=== PATIENT | male | born 1955 | race Caucasian/White ===

== ENCOUNTER 2019-12-27 09:41 | Outpatient (CLI) | payer OTHER, SELFPAY ==
--- NOTE | 2019-12-27 09:56 | CT_ITS ---
WS: [id number] LDCT LUNG CANCER SCREENING HISTORY: HX OF TOBACCO USE TECHNIQUE: Axial imaging performed from the apices to 1 cm below the costophrenic angles. Coronal and sagittal reformats are submitted with axial MIP series. All CT scans at [facility] use at least one of these dose optimization techniques: automated exposure control; mA and/or kV adjustment per patient size (includes targeted exams where dose is matched to clinical indication); or iterativ e reconstruction. DLP: 60.0 mGy.cm DIvol: 1.52 mGy COMPARISON: None available. Diagnostic quality: Satisfactory Lung Nodules: None. No endobronchial lesions. Lungs: Hyperexpanded lungs with emphysema. No pneumonia. Heart: Normal size heart. Moderate coronary artery atherosclerosis. Most significant burden in the LE FT anterior descending coronary artery. Other findings: Mild atherosclerosis aorta. Mild gynecomastia. Small hiatal hernia. CT/CT lung screening [id number] IMPRESSION: LUNG-RADS: 1-Negative FOLLOW UP: 12 Month: Continue annual screening with LDCT OTHER FINDINGS (S MODIFIER): None.
== END 2019-12-27 09:42 | disposition home or self-care (01) ==
LOC: CT 09:47
PROVIDERS: Visit Provider Nurse Practitioner Family
DX: Z12.2 Encounter for screening for malignant neoplasm of respiratory organs (principal); Z87.891 Personal history of nicotine dependence; I70.0 Atherosclerosis of aorta; N62 Hypertrophy of breast; K44.9 Diaphragmatic hernia without obstruction or gangrene
CPT/HCPCS: G0297

== ENCOUNTER 2020-07-13 09:10 | Emergency (ER) | payer OTHER, SELFPAY ==
[2020-07-13 09:13] VITALS: BP 160/89; PULSE 81; RESP 20; TEMP 37; O2SAT 95; BMI 40.2
[2020-07-13 09:24] VITALS: BP 160/89; PULSE 77; RESP 18; O2SAT 95
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
[2020-07-13 09:25] VITALS: BP 142/80; PULSE 81; RESP 18; O2SAT 96
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
[2020-07-13 10:54] VITALS: BP 141/71; PULSE 85; RESP 14; O2SAT 98
== END 2020-07-13 11:04 | disposition home or self-care (01) ==
PROVIDERS: Emergency Provider Emergency Medicine
DX: Z04.1 Encounter for examination and observation following transport accident (principal); Z79.82 Long term (current) use of aspirin; Z79.84 Long term (current) use of oral hypoglycemic drugs; I10 Essential (primary) hypertension; E78.5 Hyperlipidemia, unspecified; Z87.891 Personal history of nicotine dependence; V57.5XXA Driver of pick-up truck or van injured in collision with fixed or stationary object in traffic accident, initial encounter
CPT/HCPCS: 70450; 99283

== ENCOUNTER 2020-10-30 14:44 | Emergency (ER) | payer OTHER, SELFPAY ==
[2020-10-30 14:50] VITALS: BMI 40.6
--- NOTE | 2020-10-30 15:26 | ED_ITS ---
HPI - Arrhythmia/Palpitations General: Chief Complaint: Arrhythmia/Palpitations Stated Complaint: Abnormal EKG Time Seen by Provider: 10/30/20 15:26 History of Present Illness: HPI narrative: Mr. Tabares is a 65-year-old gentleman with significant past medical history of IA, hypertension, hyperlipidemia, diabetes, and history of tobaccoism who presents emergency department due to chest pain. He endorses being at his baseline health, and was at work this morning. He was walking when he had sudden onset of squeezing chest pain in the middle of his chest. There is no radiation, there was mild associated shortness of breath, no dizziness or lightheadedness. This self resolved but he does describe having to clench his chest. This occurred a few more times and subsequently has not recurred. He describes this as not similar to prior heart attack. There are no other specific exacerbating relieving factors. He does not frequently have chest discomfort. Review of Systems General: Reports: 10 or more systems reviewed and unremarkable except in HPI and below Narrative: CONSTITUTIONAL: denies fever, fatigue, weakness EYES - denies pain, denies loss of vision EARS - denies ear issues. NOSE - denies congestion or rhinorrhea. THROAT - denies sore throat or difficulty swallowing. CARDIOVASCULAR -see HPI. RESPIRATORY -see HPI. GASTROINTESTINAL - denies abdominal pain, no nausea vomiting, no changes in bowel habits GENITOURINARY - denies dysuria or urinary frequency MUSCULOSKELETAL- denies deformity or pain SKIN - denies rashes or new changed skin lesions NEUROLOGIC - denies focal weakness or sensory changes HEMATOLOGIC/LYMPHATIC - denies easy bruising or lymphadenopathy. PFS ED PFSH: Medical History Depression Diabetic acidosis HTN (hypertension) Hyperlipidemia Surgical History H/O shoulder surgery History of heart artery stent Family History Other Cancer Social History Smoking and tobacco status: former smoker Alcohol intake: current Alcohol intake frequency: few times a month Physical Exam Narrative: EXAM NARRATIVE: GENERAL/CONSTITUTIONAL - well-appearing. No acute distress. Eyes - PERRL, no conjunctival injection ENMT - Atraumatic external nose and ears. Moist mucous membranes NECK - supple. trachea midline CARDIOVASCULAR - regular rate and rhythm. Peripheral pulses 2+ and equal RESPIRATORY -clear to auscultation bilaterally. No retractions or accessory muscle use. ABDOMEN/GI - Nontender/Nondistended. No tenderness to percussion or evidence of peritonitis MSK - Extremities without obvious deformity or tenderness to palpation SKIN - Warm, Dry NEURO - alert and appropriately oriented. strength and sensation intact. Moves all extremities equally. PSYCH - Appropriate mood and affect Course ED course: - Patient was seen and evaluated by me at bedside - Patient placed on cardiac monitors, IV access obtained - Initial evaluation notable for no acute distress, nontoxic appearance. Patient currently chest pain-free. - Labs notable for no acute abnormality to explain the patient's symptoms. Baseline troponin is negative which in the context of symptom duration does not require repeat at this time - Imaging notable for no acute abnormality to explain the patient's symptoms - Upon serial reexamination after treatment the patient was similar without redevelopment of symptoms - Based on patient history, evaluation, labs, and imaging as interpreted the most likely cause of the patient's condition is unclear. I recommended to the patient admission for inpatient stress testing given heart score which the patient declined at this time. I explained the methodology and risk of major adverse cardiac events to the patient, the patient verbalized understanding and is competent to make medical decisions at this time. - The results of ED evaluation were discussed with the patient including prescriptions and/or symptomatic cares including appropriate and responsible use, followup plan, and return precautions. The patient verbalized understanding and felt safe for discharge. - Patient discharged in satisfactory condition. Vital Signs: Vital signs: Vital Signs Pulse Rate 70 10/30/20 18:09 Respiratory Rate 21 H 10/30/20 18:09 Blood Pressure 130/63 10/30/20 18:09 Pulse Oximetry 98 10/30/20 18:09 MDM - Arrhythmia/Palpitations Medical Records: Attestation: I reviewed the patient's medical records. Lab Data: Attestation: I reviewed the patient's lab results. Labs: Lab Results 10/30/20 10/30/20 10/30/20 Range/Units 16:57 16:57 16:57 WBC 8.9 (4.0-10.0) 10^3/ uL RBC 4.45 (4.1-5.3) 10^6/u L Hgb 13.1 (11.7-16.6) g/dL Hct 44.4 (42.0-52.0) % MCV 99.8 H (80-94) fl MCH 29.4 (28.0-34.0) pg MCHC 29.5 L (30.0-36.0) g/dL RDW 14.1 (12.1-15.1) % Plt Count 200 (130-400) 10^3/c mm MPV 9.5 (7.4-10.4) fL Neut % (Auto) 52.4 % Lymph % (Auto) 32.1 % [place] % (Auto) 10.1 % Eos % (Auto) 3.9 % Baso % (Auto) 1.0 % Neut # (Auto) 4.64 (1.8-7.7) 10^3/u L Lymph # (Auto) 2.9 (0.8-4.8) 10^3/u L [place] # (Auto) 0.9 (0.2-0.9) 10^3/u L Eos # (Auto) 0.4 (0.0-0.8) 10^3/u L Baso # (Auto) 0.1 (0.0-0.1) 10^3/u L Nucleated RBC % (a uto) 0 % Nucleated RBCs # 0.0 /100WBC Sodium 134 L (136-145) mmol/L Potassium 4.8 (3.5-5.1) mmol/L Chloride 101 (98-107) mmol/L Carbon Dioxide 22 (22-29) mmol/L Anion Gap 15.8 (5-19) BUN 16 (8-23) mg/dL Creatinine 0.7 (0.7-1.2) mg/dL GFR Calculation 113.9 (90-130) mL/min Glucose 99 (65-115) mg/dL Calculated Osmolal ity 279 L (285-295) mOsm/k g Calcium 9.3 (8.5-10.5) mg/dL Total Bilirubin 0.2 (0.15-1.2) mg/dL AST 13 (0-40) U/L ALT 18 (0-41) U/L Alkaline Phosphata se 70 (40-130) IU/L Troponin T Baselin e 8 (0-15) ng/L NT-Pro-B Natriuret Pep 11 (0-125) pg/mL Total Protein 6.7 (6.6-8.7) g/dL Albumin 4.0 (3.5-5.2) g/dL Globulin 2.7 (1.3-4.6) g/dL Lipase 29 (13-60) U/L EKG Data^: EKG 1: Attestation: I personally reviewed and interpreted this EKG as follows: EKG interpretation date: 10/30/20 EKG interpretation time: 16:05 Prior EKG tracings: not available for review Interpretation: Twelve-lead EKG shows a regular sinus rhythm at a rate of 72. SD interval 188, QRS duration 97, QTc 366. Interpretation: Sinus rhythm. Other EKG comments: Chest X-Ray 10/30/20 15:38 IMPRESSION: No acute findings. EKG 2: Attestation: I personally reviewed and interpreted this EKG as follows: EKG interpretation date: 10/30/20 EKG interpretation time: 17:53 Prior EKG tracings: available for review Ischemic changes: non-specific ST-T wave changes Interpretation: Twelve-lead EKG shows regular sinus rhythm at a rate of 67. SD interval 188, QRS duration 98, QTc 361. Interpretation: Sinus rhythm. Other EKG comments: Chest X-Ray 10/30/20 15:38 IMPRESSION: No acute findings. Discharge Plan Discharge Patient Disposition: Home Clinical Impression: Chest pain Condition: Stable Prescriptions: No Action lisinopril 40 mg tablet 40 mg PO QAM RF: 0 carvedilol 12.5 mg tablet 12.5 mg PO BID@ RF: 0 metformin 1,000 mg tablet 1,000 mg PO BID@ RF: 0 atorvastatin 80 mg tablet 80 mg PO BEDTIME RF: 0 omeprazole 20 mg capsule,delayed release(DR/EC) 20 mg PO DAILY@06 RF: 0 aspirin 325 mg tablet 325 mg PO QAM RF: 0 amitriptyline 10 mg tablet 10 mg PO BEDTIME RF: 0 nitroglycerin [Nitrostat] 0.4 mg tablet, sublingual 0.4 mg sublingual Q5M PRN (Reason: Chest Pain) RF: 0 multivitamin Tablet 2 tab PO QAM RF: 0 levothyroxine 125 mcg tablet 125 mcg PO QAM RF: 0 vitamin B complex Tablet 1 tab PO QAM RF: 0 albuterol sulfate 90 mcg/actuation HFA aerosol inhaler 1 - 2 puff INHALATION Q4H PRN (Reason: Shortness Of Breath) RF: 0 Fish Oil 1 cap PO BID RF: 0 Discharge Orders: Discharge ED (Routine); Ordered 10/30/20 Ordered By: Stephon Fung Discharge Diet: Cardiac Discharge Activity: Resume usual activity Patient Instructions: Chest Pain (ED) Activity Restrictions/Additional Instructions: Thank you for visiting the emergency department. You were seen and evaluated for chest pain and abnormal EKG. The exact cause of these is unclear. Given your history of stent placement and risk factors your moderate risk for major adverse cardiac events in the next 45 days (approximately 20%). We offered admission which she declined at this time. Please follow-up with your primary care provider. Please follow-up with cardiology and get an outpatient stress test. Please return to the emergency department for recurrence of your symptoms, shortness of breath, or anything else that you are concerned about and feel needs emergency department evaluation Coding Level of Care Code ED Boiler Or Engine Operator for Steven Salazar
--- NOTE | 2020-10-30 15:38 | XRR_ITS ---
PROCEDURE INFORMATION: Exam: XR Chest Exam date and time: 10/30/2020 3:38 PM Age: 65 years old Clinical indication: Angina pectoris; Prior surgery; Surgery type: Stent; Patient HX: One episode of chest pain. Abnormal ekg, tachcardia TECHNIQUE: Imaging protocol: XR of the chest. Views: 1 view. COMPARISON: CT lung screening [id number] 12/27/2019 10:03 AM FINDINGS: Lungs: Unremarkable. No consolidation. Pleural spaces: Unremarkable. No pleural effusion. No pneumothorax. Heart/Mediastinum: Unremarkable. No cardiomegaly. Bones/joints: Unremarkable. XR/XR chest 1V portable [id number] IMPRESSION: No acute findings.
[2020-10-30 15:45] VITALS: BP 161/75; PULSE 82; RESP 21; O2SAT 94
--- NOTE | 2020-10-30 15:48 | ECG_ITS ---
[facility] Test Date: 2020-10-30 Pat Name: Benigno Norman Department: Room: Gender: Male Inspector Machine Parts: : 1955 Requested By: Stephon Fung Order Number: [id number] Gricelda MD: Brisa Oden M.D. Measurements Intervals [place] Rate: 72 P: 47 [place]: 188 QRS: -24 QRSD: 97 T: 35 QT: 334 QTc: 366 Interpretive Statements SINUS RHYTHM POSSIBLE INFERIOR MYOCARDIAL INFARCTION , PROBABLY OLD [30 ms Q WAVE IN II/aVF] No previous ECG available for comparison Electronically Signed On 10-31-2020 0:09:52 CDT by Brisa Oden M.D. [id number]
--- NOTE | 2020-10-30 15:56 | PC.PHAR ---
PT STATES HIS HELPS HIM WITH HIS MEDICATIONS-PT STATES HE HAS A LIST AND STATES ITS A UPDATED LIST-PTS MED LIST MATCHES WHAT EXT MED HISTORY SHOWS HAS BEEN FILLED RECENTLY-PT STATES HE TAKES THE MEDICATIONS ENTERED
[2020-10-30] MEDS: aspirin 81 mg Chew Tablet 324 MG PO (15:59)
[2020-10-30] MEDS: lactated ringers 1,000 ML 999 ML IV (16:29)
[2020-10-30 16:43] VITALS: BP 156/72; PULSE 78; RESP 21; O2SAT 98
[2020-10-30 17:01] LABS: Basophils # 0.1 10^3/uL (0.0-0.1); Eosinophils # 0.4 10^3/uL (0.0-0.8); Eosinophils % 3.9 %; Hematocrit 44.4 % (42.0-52.0); Hemoglobin 13.1 g/dL (11.7-16.6); Lymphocytes # 2.9 10^3/uL (0.8-4.8); Lymphocytes % 32.1 %; Mean Corpuscular HGB Conc 29.5 g/dL (30.0-36.0); Mean Corpuscular Hemoglobin 29.4 pg (28.0-34.0); Mean Corpuscular Volume 99.8 fl (80-94); Mean Platelet Volume 9.5 fL (7.4-10.4); Monocytes # 0.9 10^3/uL (0.2-0.9); Monocytes % 10.1 %; Neutrophils # 4.64 10^3/uL (1.8-7.7); Neutrophils % 52.4 %; Nucleated Red Blood Cells % 0 %; Platelet Count 200 10^3/cmm (130-400); Red Blood Count 4.45 10^6/uL (4.1-5.3); Red Cell Distribution Width 14.1 % (12.1-15.1); White Blood Count 8.9 10^3/uL (4.0-10.0)
[2020-10-30 17:17] LABS: Slide Review Slide Review Perform
[2020-10-30 17:32] LABS: Troponin(5th) Baseline 8 ng/L (0-15)
--- NOTE | 2020-10-30 17:38 | ECG_ITS ---
[facility] Test Date: 2020-10-30 Pat Name: Benigno Norman Department: Room: Gender: Male Uniform Cap Operator: : 1955 Requested By: Stephon Fung Order Number: [id number] Gricelda MD: Brisa Oden M.D. Measurements Intervals [place] Rate: 67 P: 47 [place]: 188 QRS: -22 QRSD: 98 T: 38 QT: 342 QTc: 361 Interpretive Statements SINUS RHYTHM BORDERLINE LEFT AXIS DEVIATION [QRS AXIS < -20] Compared to ECG 10/30/2020 16:01:15 Myocardial infarct finding no longer present Electronically Signed On 10-31-2020 0:10:44 CDT by Brisa Oden M.D. [id number]
[2020-10-30 17:39] LABS: Alanine Aminotransferase 18 U/L (0-41); Alkaline Phosphatase 70 IU/L (40-130); Anion Gap 15.8 (5-19); Aspartate Amino Transferase 13 U/L (0-40); Blood Urea Nitrogen 16 mg/dL (8-23); Calcium 9.3 mg/dL (8.5-10.5); Carbon Dioxide 22 mmol/L (22-29); Chloride 101 mmol/L (98-107); Globulin 2.7 g/dL (1.3-4.6); Glomerular Filtration Rate 113.9 mL/min (90-130); Glucose 99 mg/dL (65-115); Lipase 29 U/L (13-60); NT Pro B Type Natriuretic Pept 11 pg/mL (0-125); Osmolality Calculated 279 mOsm/kg (285-295); Potassium 4.8 mmol/L (3.5-5.1); Sodium 134 mmol/L (136-145); Total Bilirubin 0.2 mg/dL (0.15-1.2); Total Protein 6.7 g/dL (6.6-8.7)
[2020-10-30 18:09] VITALS: BP 130/63; PULSE 70; RESP 21; O2SAT 98
--- NOTE | 2020-10-31 14:56 | DCPLANNER ---
equipment hire manager had message to schedule an outpatient stress test for patient. equipment hire manager faxed signed order to centralized scheduling, who will call patient with appointment information.
--- NOTE | 2020-11-03 11:14 | DCPLANNER ---
Patient has an outpatient stress test scheduled for Tuesday, November 17, 2020 at 1:00.
--- NOTE | 2020-11-29 14:46 | DCPLANNER ---
Patient had an outpatient stress test scheduled for 11.17.20 - appointment was cancelled.
== END 2020-10-30 18:05 | disposition home or self-care (01) ==
PROVIDERS: Emergency Provider Emergency Medicine
DX: R07.9 Chest pain, unspecified (principal); Z79.82 Long term (current) use of aspirin; Z79.84 Long term (current) use of oral hypoglycemic drugs; I10 Essential (primary) hypertension; E78.5 Hyperlipidemia, unspecified; Z87.891 Personal history of nicotine dependence
CPT/HCPCS: 71045; 80053; 83690; 83880; 84484; 85025; 93005; 96360; 99283; 99284

== ENCOUNTER 2021-09-14 13:35 | Outpatient (CLI) | payer OTHER, SELFPAY ==
--- NOTE | 2021-09-14 13:48 | CT_ITS ---
WS: [id number] LDCT LUNG CANCER SCREENING HISTORY: HX OF TOBACCO USE TECHNIQUE: Axial imaging performed from the apices to 1 cm below the costophrenic angles. Coronal and sagittal reformats are submitted with axial MIP series. All CT scans at [facility] use at least one of these dose optimization techniques: automated exposure control; mA and/or kV adjustment per patient size (includes targeted exams where dose is matched to clinical indication); or iterativ e reconstruction. DLP: 76.00 mGy.cm DIvol: Mean CTDIvol: 1.60 (mGy) COMPARISON: 12/27/2019 Diagnostic quality: Satisfactory Lung Nodules: No mass or nodule. No endobronchial lesions. Lungs: Mild hyperinflation. Heart: Normal size heart. Other findings: Mild atherosclerosis aorta. Moderate coronary artery calcification. CT/CT lung screening [id number] IMPRESSION: LUNG-RADS: 1-Negative FOLLOW UP: 12 Month: Continue annual screening with LDCT OTHER FINDINGS (S MODIFIER): None.
== END 2021-09-14 13:36 | disposition home or self-care (01) ==
LOC: RAD 13:38
PROVIDERS: PCP Family Medicine; Visit Provider Family Medicine
DX: Z12.2 Encounter for screening for malignant neoplasm of respiratory organs (principal); F17.210 Nicotine dependence, cigarettes, uncomplicated
CPT/HCPCS: 71271

== ENCOUNTER → 2022-07-23 10:48 | Outpatient (BNVA) | payer OTHER, SELFPAY | PROVIDERS: PCP Family Medicine; Visit Provider Podiatrist Foot & Ankle Surgery | DX: E11.42 Type 2 diabetes mellitus with diabetic polyneuropathy (principal); L60.3 Nail dystrophy; L84 Corns and callosities; L60.8 Other nail disorders; M21.42 Flat foot [pes planus] (acquired), left foot; M21.41 Flat foot [pes planus] (acquired), right foot; M20.42 Other hammer toe(s) (acquired), left foot; M20.41 Other hammer toe(s) (acquired), right foot; M21.612 Bunion of left foot; M21.611 Bunion of right foot; Z79.84 Long term (current) use of oral hypoglycemic drugs | CPT/HCPCS: 11055; 11721 ==

== ENCOUNTER 2022-09-16 11:53 | Outpatient (CLI) | payer MEDICARE, SELFPAY ==
--- NOTE | 2022-09-16 12:07 | CT_ITS ---
WS: [id number] LDCT LUNG CANCER SCREENING HISTORY: HISTORY OF TOBACCO USE TECHNIQUE: Axial imaging performed from the apices to 1 cm below the costophrenic angles. Coronal and sagittal reformats are submitted with axial MIP series. All CT scans at [facility] use at least one of these dose optimization techniques: automated exposure control; mA and/or kV adjustment per patient size (includes targeted exams where dose is matched to clinical indication); or iterativ e reconstruction. DLP: 208.91 mGy.cm DIvol: Mean CTDIvol: 5.20 (mGy) COMPARISON: None available. Diagnostic quality: 09/14/2021 Lungs: Question 3 mm nodule RIGHT upper lobe. May have been present on prior studies but better seen today due to slice selection. No suspicious mass or nodule identified. No endobronchial lesions. Heart: Normal size heart with no pericardial effusion.. Other findings: Atherosclerotic plaque thoracic aorta. No aneurysm. Normal size pulmonary artery. No mediastinal or hilar adenopathy. Moderate coronary artery calcification. Mild hepatic steatosis. No a drenal mass. CT/CT lung screening [id number] IMPRESSION: LUNG-RADS: 2-Benign Appearance or Behavior FOLLOW UP: 12 Month: Continue annual screening with LDCT OTHER FINDINGS (S MODIFIER): None.
== END 2022-09-16 11:54 | disposition home or self-care (01) ==
LOC: RAD 12:02
PROVIDERS: PCP Family Medicine; Visit Provider Nurse Practitioner Family
DX: Z12.2 Encounter for screening for malignant neoplasm of respiratory organs (principal); Z87.891 Personal history of nicotine dependence
CPT/HCPCS: 71271

== ENCOUNTER → 2022-11-04 07:59 | Outpatient (BNVA) | payer MEDICARE, SELFPAY | PROVIDERS: PCP Family Medicine; Visit Provider Podiatrist Foot & Ankle Surgery | DX: E11.8 Type 2 diabetes mellitus with unspecified complications (principal); E11.42 Type 2 diabetes mellitus with diabetic polyneuropathy; L60.3 Nail dystrophy; M20.41 Other hammer toe(s) (acquired), right foot; M20.42 Other hammer toe(s) (acquired), left foot; M21.619 Bunion of unspecified foot; M21.40 Flat foot [pes planus] (acquired), unspecified foot; L60.8 Other nail disorders; L84 Corns and callosities; Z79.84 Long term (current) use of oral hypoglycemic drugs | CPT/HCPCS: 11055; 11721 ==

== ENCOUNTER → 2023-01-13 08:24 | Outpatient (BNVA) | payer MEDICARE, SELFPAY | PROVIDERS: PCP Family Medicine; Visit Provider Podiatrist Foot & Ankle Surgery | DX: L60.0 Ingrowing nail (principal); E11.42 Type 2 diabetes mellitus with diabetic polyneuropathy; L60.3 Nail dystrophy; L60.8 Other nail disorders; Z79.84 Long term (current) use of oral hypoglycemic drugs | CPT/HCPCS: 99213 ==

== ENCOUNTER → 2023-03-13 07:50 | Outpatient (BNVA) | payer MEDICARE, SELFPAY | PROVIDERS: PCP Family Medicine; Visit Provider Podiatrist Foot & Ankle Surgery | DX: L60.8 Other nail disorders (principal); L60.0 Ingrowing nail; L60.3 Nail dystrophy; E11.9 Type 2 diabetes mellitus without complications; Z79.84 Long term (current) use of oral hypoglycemic drugs | CPT/HCPCS: 11750 ==

== ENCOUNTER → 2023-03-31 07:45 | Outpatient (BNVA) | payer MEDICARE, SELFPAY | PROVIDERS: PCP Family Medicine; Visit Provider Podiatrist Foot & Ankle Surgery | DX: Z98.890 Other specified postprocedural states (principal); E11.42 Type 2 diabetes mellitus with diabetic polyneuropathy; Z79.84 Long term (current) use of oral hypoglycemic drugs | CPT/HCPCS: 99213 ==

== ENCOUNTER → 2023-06-25 08:52 | Outpatient (BNVA) | payer MEDICARE, SELFPAY | PROVIDERS: PCP Family Medicine; Visit Provider Podiatrist Foot & Ankle Surgery | DX: E11.42 Type 2 diabetes mellitus with diabetic polyneuropathy (principal); L60.3 Nail dystrophy; Z79.84 Long term (current) use of oral hypoglycemic drugs | CPT/HCPCS: 11721 ==

== ENCOUNTER 2023-09-19 07:34 | Outpatient (CLI) | payer MEDICARE, SELFPAY ==
--- NOTE | 2023-09-19 07:48 | CT_ITS ---
WS: [id number] LDCT LUNG CANCER SCREENING TECHNIQUE: Noncontrast CT of the chest with coronal and sagittal reformatted images. CLINICAL INFORMATION: HISTORY OF TOBACCO USE COMPARISON: CT 09/16/2022 DLP: 185.80 mGy.cm DIvol: Mean CTDIvol: 4.80 (mGy) All CT scans at [facility] use at least one of these dose optimization techniques: automat ed exposure control; mA and/or kV adjustment per patient size (includes targeted exams where dose is matched to clinical indication); or iterative reconstruction. FINDINGS: Stable 3 mm nodule RIGHT upper lobe. No new suspicious parenchymal abnormalities. Aortic calcification. No mediastinal or hilar lymphadenopathy. Coronary artery calcification. Adrenal glands appear normal. CT/CT lung screening [id number] IMPRESSION: LUNG-RADS: 2-Benign Appearance or Behavior FOLLOW UP: 12 Month: Continue annual screening with LDCT
== END 2023-09-19 07:35 | disposition home or self-care (01) ==
PROVIDERS: PCP Family Medicine; Visit Provider Nurse Practitioner Family
DX: Z12.2 Encounter for screening for malignant neoplasm of respiratory organs (principal); Z87.891 Personal history of nicotine dependence; R91.1 Solitary pulmonary nodule; I25.10 Atherosclerotic heart disease of native coronary artery without angina pectoris
CPT/HCPCS: 71271

== ENCOUNTER → 2023-09-24 13:49 | Outpatient (BNVA) | payer MEDICARE, SELFPAY | PROVIDERS: PCP Family Medicine; Visit Provider Podiatrist Foot & Ankle Surgery | DX: E11.42 Type 2 diabetes mellitus with diabetic polyneuropathy (principal); L60.3 Nail dystrophy; Z79.84 Long term (current) use of oral hypoglycemic drugs | CPT/HCPCS: 11721 ==

== ENCOUNTER → 2023-12-23 09:11 | Outpatient (BNVA) | payer MEDICARE, SELFPAY | PROVIDERS: PCP Family Medicine; Visit Provider Podiatrist Foot & Ankle Surgery | DX: E11.42 Type 2 diabetes mellitus with diabetic polyneuropathy (principal); L60.3 Nail dystrophy; Z79.84 Long term (current) use of oral hypoglycemic drugs | CPT/HCPCS: 11721 ==

== ENCOUNTER 2024-01-08 08:47 | Outpatient (CLI) | payer MEDICARE, SELFPAY ==
--- NOTE | 2024-01-08 | ECG_ITS ---
[employer] Test Date: 2024-01-08 Pat Name: Benigno Norman Department: Room: Gender: Male [employer]: : 1955 Requested By: Amy Trent Order Number: [id number] Gricelda MD: Brisa Oden M.D. Interpretive Statements beatriz unchanged pre/post procedure; Intraprocedure shortess of breath; Symptoms resoled by discharge PROCEDURE: At the baseline, the EKG revealed sinus rhythm with poor R wave progression. Normal complex in the limb leads. No acute ST-T changes.. The baseline heart was 60 bpm with a blood pressue of 134/103 mm of Hg Lexiscan was infused over a period of 20 seconds. A total of 0.4 milligrams of Lexiscan was infused. The stress phase was continued for a total of 5 minutes. Heart rate at the end of the stress phase was 74 bpm with a blood pressure 145/97 mm of Hg. The EKG at the peak infusion revealed no significant changes. Sestamibi was injected 20 seconds after the Lexiscan infusion. Heart rate at the end of the recovery phase was 70 bpm with a blood pressure of 139/86 mm of Hg. CONCLUSION: 1. No significant EKG changes with the LexiScan infusion 2. No LexiScan induced chest pain or cardiac arrhythmia 3. Normal blood pressure and heart rate response 4. Sestamibi/sestamibi perfusion scan pending; see separate report. Electronically Signed On 01-11-2024 22:33:32 CDT by Brisa Oden M.D. [email or web address]
[2024-01-08 09:21] VITALS: BMI 39.6
--- NOTE | 2024-01-08 09:32 | NMCV_ITS ---
NM davi perf SPECT r/s* [id number] Benigno Norman Age: 68 Gender: M : 1955 Exam Date: 01/08/2024 09:32 Ordering Phys: Amy Trent [employer] PROCESSING TECHNICIAN Technologist: JANAY Zelaya Exam Location: [facility] Indications: cp STRESS TEST [facility] IMAGE PROTOCOL Rest/Stress 1 Lexiscan Day Radiopharmaceutical Dose (mCi) Administration Site Administered by Rest: Tc-99m 10.5 IV Nnamdi Antunez, COLOR DIPPER Sestamibi Stress:Tc-99m 30.4 IV Nnamdi Tulio, COLOR DIPPER Sestamibi Rest: 08-Jan-2024 60 Discovery 630 Stress: 08-Jan-2024 30 Discovery 630 0.4mg Lexiscan. Supine position only as patient was unable to lay prone. SPECT RESULTS Technical Quality: Good Raw Data Analysis: Normal Image Corrections: No attenuation or motion correction applied Summed Stress Score: 6 Summed Rest Score: 5 Summed Difference Score: 1 PERFUSION FINDINGS Moderate area of minimal to moderately decreased tracer uptake involving the basal and mid inferior, mid inferolateral and apical lateral segments. Some reversibility was noted in the mid apical inferolateral region. FUNCTIONAL RESULTS (calculated via Gated SPECT) Stress Image LV EF (%): 54 Stress EDV (mL):125 TID: 0.96 Stress ESV (mL):58 FUNCTIONAL FINDINGS: Segmental wall motion analysis revealed mild hypokinesis LV apex IMPRESSIONS 1. Myocardial perfusion imaging revealing moderate area of minimal to moderately decreased tracer uptake involving the inferior, inferolateral and apical lateral regions with some reversibility in the inferolateral regions suggesting myocardial scarring in the distribution of the right coronary artery with a small area of ischemia in the distribution of the circumflex artery 2. Normal LV ejection fraction of 54%. 3. LV wall motion analysis revealing no gross wall motion abnormalities. 4. Mildly dilated LV cavity with an end-systolic volume of 58 mL No similar previous studies are available for comparison Dr Brisa Oden MD [facility] (Electronically Signed) Final Date: 08 January 2024 13:27 S
[2024-01-08] MEDS: regadenoson 0.4 Mg/5 ml Syringe IVP (10:38)
[2024-01-08 11:09] VITALS: BP 139/86; PULSE 73
== END 2024-01-08 08:48 | disposition home or self-care (01) ==
PROVIDERS: PCP Family Medicine; Visit Provider Nurse Practitioner Family
DX: R07.89 Other chest pain (principal); R94.39 Abnormal result of other cardiovascular function study; R06.02 Shortness of breath
CPT/HCPCS: 36415; 78452; 93017; 96374; A9500; J2785

== ENCOUNTER → 2024-03-09 12:16 | Outpatient (BNVA) | payer MEDICARE, SELFPAY | PROVIDERS: PCP Family Medicine; Visit Provider Internal Medicine | DX: I25.10 Atherosclerotic heart disease of native coronary artery without angina pectoris (principal); E78.5 Hyperlipidemia, unspecified; I10 Essential (primary) hypertension; Z87.891 Personal history of nicotine dependence | CPT/HCPCS: 93005; 99204 ==

== ENCOUNTER → 2024-03-30 08:58 | Outpatient (BNVA) | payer MEDICARE, SELFPAY | PROVIDERS: PCP Family Medicine; Visit Provider Podiatrist Foot & Ankle Surgery | DX: E11.42 Type 2 diabetes mellitus with diabetic polyneuropathy (principal); L60.3 Nail dystrophy; L84 Corns and callosities; Z79.84 Long term (current) use of oral hypoglycemic drugs | CPT/HCPCS: 11056; 11721 ==

== ENCOUNTER → 2024-06-29 08:48 | Outpatient (BNVA) | payer MEDICARE, SELFPAY | PROVIDERS: PCP Family Medicine; Visit Provider Podiatrist Foot & Ankle Surgery | DX: E11.42 Type 2 diabetes mellitus with diabetic polyneuropathy (principal); L60.3 Nail dystrophy; L84 Corns and callosities; Z79.84 Long term (current) use of oral hypoglycemic drugs | CPT/HCPCS: 11056; 11721 ==

== ENCOUNTER → 2024-09-14 12:51 | Outpatient (BNVA) | payer MEDICARE, SELFPAY | PROVIDERS: PCP Family Medicine; Visit Provider Podiatrist Foot & Ankle Surgery | DX: E11.42 Type 2 diabetes mellitus with diabetic polyneuropathy (principal); L60.3 Nail dystrophy; L84 Corns and callosities; Z79.84 Long term (current) use of oral hypoglycemic drugs; E11.8 Type 2 diabetes mellitus with unspecified complications | CPT/HCPCS: 11056; 11721 ==

== ENCOUNTER 2024-09-20 11:19 | Outpatient (CLI) | payer MEDICARE, SELFPAY ==
--- NOTE | 2024-09-20 11:28 | CT_ITS ---
WS: [id number] LDCT LUNG CANCER SCREENING TECHNIQUE: Noncontrast CT of the chest with coronal and sagittal reformatted images. CLINICAL INFORMATION: HX OF TOBACCO USE COMPARISON: 2023 DLP: 206.59 mGy.cm DIvol: Mean CTDIvol: 5.20 (mGy) All CT scans at [facility] use at least one of these dose optimization techniques: automated exposure control; mA and/or kV adjustment per patient size (includes targeted exams where dose is matched to clinical indication); or iterative reconstruction. FINDINGS: Stable 3 mm nodule RIGHT upper lobe. No new suspicious pulmonary parenchymal abnormalities. Aortic calcification. No mediastinal or hilar lymphadenopathy. Coronary artery calcification. Adrenal glands appear normal. Small esophageal hiatal hernia. Mild thoracic curve. Mild thoracic kyphosis. Hypertrophic changes thoracic spine. CT/CT lung screening [id number] IMPRESSION: LUNG-RADS: 2-Benign Appearance or Behavior FOLLOW UP: 12 Month: Continue annual screening with LDCT
== END 2024-09-20 11:20 | disposition home or self-care (01) ==
LOC: RAD 11:21
PROVIDERS: PCP Family Medicine; Visit Provider Family Medicine
DX: Z12.2 Encounter for screening for malignant neoplasm of respiratory organs (principal); Z87.891 Personal history of nicotine dependence; R91.1 Solitary pulmonary nodule; I70.0 Atherosclerosis of aorta; I25.10 Atherosclerotic heart disease of native coronary artery without angina pectoris; K44.9 Diaphragmatic hernia without obstruction or gangrene; M43.8X4 Other specified deforming dorsopathies, thoracic region; M40.294 Other kyphosis, thoracic region; M89.38 Hypertrophy of bone, other site
CPT/HCPCS: 71271

== ENCOUNTER → 2024-11-24 09:14 | Outpatient (BNVA) | payer MEDICARE, SELFPAY | PROVIDERS: PCP Family Medicine; Visit Provider Podiatrist Foot & Ankle Surgery | DX: L60.0 Ingrowing nail (principal); E11.42 Type 2 diabetes mellitus with diabetic polyneuropathy; L03.116 Cellulitis of left lower limb; Z79.84 Long term (current) use of oral hypoglycemic drugs | CPT/HCPCS: 11750; 99214; J9999 ==

== ENCOUNTER → 2024-12-20 14:32 | Outpatient (BNVA) | payer MEDICARE, SELFPAY | PROVIDERS: PCP Family Medicine; Visit Provider Podiatrist Foot & Ankle Surgery | DX: E11.42 Type 2 diabetes mellitus with diabetic polyneuropathy (principal); L60.3 Nail dystrophy; L84 Corns and callosities; E11.8 Type 2 diabetes mellitus with unspecified complications; Z79.84 Long term (current) use of oral hypoglycemic drugs | CPT/HCPCS: 11056; 11721 ==

== ENCOUNTER → 2025-03-08 12:31 | Outpatient (BNVA) | payer MEDICARE, SELFPAY | PROVIDERS: PCP Family Medicine; Visit Provider Internal Medicine | DX: I25.10 Atherosclerotic heart disease of native coronary artery without angina pectoris (principal); E78.5 Hyperlipidemia, unspecified; I10 Essential (primary) hypertension; Z87.891 Personal history of nicotine dependence | CPT/HCPCS: 99214 ==